=== PATIENT | female | born 1990 | race Caucasian/White ===

== ENCOUNTER → 2023-07-04 09:31 | Outpatient (REF) | payer BC, SELFPAY | LOC: RAD 09:31 | PROVIDERS: ATTENDING PHYSICIAN Nurse Practitioner Family | DX: S99.922S Unspecified injury of left foot, sequela (principal) | CPT/HCPCS: 73630 ==

== ENCOUNTER → 2023-07-16 08:40 | Outpatient (REF) | payer BC, SELFPAY | LOC: REG 08:40 | PROVIDERS: ATTENDING PHYSICIAN Physician Assistant | DX: Z34.91 Encounter for supervision of normal pregnancy, unspecified, first trimester (principal) | CPT/HCPCS: 36415; 84702 ==

== ENCOUNTER → 2023-10-27 07:44 | Outpatient (REF) | payer BC, SELFPAY | LOC: EMG 07:44 | PROVIDERS: ATTENDING PHYSICIAN Physician Assistant | DX: G62.9 Polyneuropathy, unspecified (principal); R20.0 Anesthesia of skin; R20.2 Paresthesia of skin | CPT/HCPCS: 95886; 95913 ==

== ENCOUNTER → 2023-11-24 09:58 | Outpatient (REF) | payer BC, SELFPAY | LOC: HWRAD 09:58 | PROVIDERS: ATTENDING PHYSICIAN Physician Assistant | DX: E01.0 Iodine-deficiency related diffuse (endemic) goiter (principal); E03.9 Hypothyroidism, unspecified | CPT/HCPCS: 76536 ==

== ENCOUNTER → 2023-12-07 09:01 | Outpatient (REF) | payer BC, SELFPAY ==
[2023-12-07 09:17] VITALS: BP 127/94; BP_SYST 92
[2023-12-07 11:35] LABS: Free T4 1.37 ng/dl (0.78-2.19)
[2023-12-07 11:49] LABS: TSH 0.46 uIU/ml (0.47-4.68)
== END ==
LOC: RADI 09:01
PROVIDERS: ATTENDING PHYSICIAN Physician Assistant
DX: E04.1 Nontoxic single thyroid nodule (principal)
CPT/HCPCS: 88173; 10005; 36415; 84439; 84443

== ENCOUNTER → 2024-04-26 16:01 | Outpatient (REF) | payer BC, SELFPAY | LOC: RAD 16:01 | PROVIDERS: ATTENDING PHYSICIAN Family Medicine | DX: M79.672 Pain in left foot (principal); M25.572 Pain in left ankle and joints of left foot | CPT/HCPCS: 73610; 73630 ==

== ENCOUNTER 2024-05-15 20:13 | Emergency (ER) | payer BC, SELFPAY ==
[2024-05-15 20:17] VITALS: BP 110/86
[2024-05-15 20:35] LABS: % Basophils 0.2 % (0-2); % Immature Granulocytes 0.2 % (0-0.5); % Lymphocytes 7.2 % (20.5-51.1); % Neutrophils 87.4 % (42.2-75.2); Absolute Eosinophils 0.1 10^3/uL (0-0.7); Absolute Lymphocytes 0.4 10^3/uL (1.2-3.4); Absolute Monocytes 0.2 10^3/uL (0.1-0.6); Absolute Neutrophils 4.4 10^3/uL (1.4-6.5); Hematocrit 40.1 % (37.0-47.0); Hemoglobin 13.7 g/dL (12.0-16.0); Mean Corp Hgb Conc. 34.2 g/dL (33.0-37.0); Mean Corpuscular Hgb 28.6 pg (27.0-31.0); Mean Corpuscular Volume 83.7 fL (81.0-99.0); Mean Platelet Volume 11.1 fL (7.4-10.4); Nucleated Red Blood Cells % 0 %; Platelet Count 226 10^3/uL (130-400); Red Blood Cell Count 4.79 10^6/uL (4.20-5.40); Red Cell Dist. Width 12.1 % (11.5-14.5)
[2024-05-15 20:47] LABS: ALT (SGPT) 20 U/L (0-35); AST (SGOT) 22 U/L (14-36); Alkaline Phosphatase 75 U/L (38-126); Blood Urea Nitrogen 15 mg/dl (7-17); Calcium 8.7 mg/dl (8.4-10.2); Carbon Dioxide 19 mmol/L (22-30); Chloride 103 mmol/L (98-107); Glucose 188 mg/dl (70-99); Potassium 4.6 mmol/L (3.5-5.1); Sodium 131 mmol/L (135-145); Total Bilirubin 0.7 mg/dl (0.2-1.3); Total Protein 6.5 g/dl (6.3-8.2); eGFR > 60.00
[2024-05-15 20:55] LABS: COVID-19 Antigen Negative (Negative)
--- NOTE | 2024-05-15 22:19 | EDRN ---
pt approached desk wishing to leave, reports she will use her own inhaler and follow up in the morning. lwot paper explained, pt signed for self. pt seen using her own inhaler and ambulated on own out of department without difficulty.
== END 2024-05-15 22:22 | disposition left against medical advice (07) ==
LOC: EMR 20:13
PROVIDERS: Student in an Organized Health Care Education/Training Program; EMERGENCY PHYSICIAN Emergency Medicine
DX: R50.9 Fever, unspecified (principal); R21 Rash and other nonspecific skin eruption; R22.0 Localized swelling, mass and lump, head; Z11.52 Encounter for screening for COVID-19; Z53.21 Procedure and treatment not carried out due to patient leaving prior to being seen by health care provider
CPT/HCPCS: 99281; 80053; 85025; 87502; 87811; 93005

== ENCOUNTER 2024-05-24 18:36 | Emergency (ER) | payer BC, SELFPAY ==
[2024-05-24 18:41] VITALS: BP 163/91
[2024-05-24 19:45] LABS: Troponin I < 0.012 ng/ml
[2024-05-24 20:45] VITALS: BP 139/95
[2024-05-24 21:00] VITALS: BP 143/91
[2024-05-24 21:11] VITALS: BMI 46.9
[2024-05-24 22:00] VITALS: BP 136/86
[2024-05-24 23:30] VITALS: BP 136/96
--- NOTE | 2024-05-24 23:48 | ED.GENMED ---
History of Present Illness
General
Chief Complaint: Cardiac Symptoms
Time Seen by Provider: 05/24/24 23:11
History of Present Illness
History of Present Illness:
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 Patient also reports
bilateral lower extremity swelling. Patient states that she had a outpatient ultrasound of her right leg that showed no DVT, states that she did not have a ultrasound of her left leg. Patient states that she has an avulsion fracture of the left
ankle is currently in the boot for the past 3 weeks. Patient states that she was seen by her PCP for symptoms who completed labs that showed a BNP of 997. Patient reports 17 pound weight gain in the past 3 days. Patient denies fever or cough
Past History
Past History
ED Past Medical History: Asthma, Hypercholesterolemia, NIDDM, Hypothyroidism and Other (AntiThrombin Deficiency, PCOS, Rectal bleeding, Migraines, Herniated disc)
ED Past Surgical History: Orthopedic
Social History
Tobacco: Non-smoker
Alcohol: None
Drug: None
Personal:
Living: with family
Employment: Employed (In nursing school)
Family History
Family History: Other (Patient's sister has had multiple pulmonary embolisms)
Phy Exam
Physical Exam
Physical Exam:
General: Alert, no acute distress
Head: NCAT
Eyes: clear conjunctiva
Neck: supple
Cardiac: regular rate and rhythm, no murmur
Lungs: clear to auscultation bilaterally. No wheezes, rales, or rhonchi. Speaking full unlabored sentences. No respiratory distress.
Abdomen: soft, nondistended nontender. No rebound or guarding.
MSK: bilateral lower extremity edema. right leg in boot
Skin: warm, dry
Neuro: Alert and oriented x3. no focal deficits
Course
Orders/Labs/Results
Orders:
Orders
05/24/24 18:36
Electrocardiogram (*1) Urgent
Reason for Study: Chest Pain
EKG- Treatment ONCE
05/24/24 18:58
CXR2 [CR Chest - 2 Views ] Urgent
Comment:
Reason For Exam: sob
05/24/24 19:07
Troponin I Urgent
05/24/24 23:41
Electrocardiogram (*1) Urgent
Reason for Study: Chest Pain
EKG- Treatment ONCE
CBC/With Diff [Complete Blood Count/With Diff] Urgent
CMP [Comprehensive Metabolic Panel] Urgent
DDimer [D-Dimer] Urgent
, Urine Qualitative Screen [HCG, Urine Qualitative Screen] Urgent
Date Specimen was Collected: 05/25/24
Time Specimen was Collected: 00:08
Protime/PTT Urgent
Troponin I Urgent
05/24/24 23:42
Test Result ONCE
05/25/24 00:00
US Periph Venous LOWER Ext LT Urgent
Reason For Exam: swelling
05/25/24 01:[address] [CT Chest PE Study] Urgent
Comment:
Reason For Exam: chest pain sob elevated ddimer
Abnormal Lab Results
05/25/24
00:17
RBC 3.72 L 10^6/uL
(4.20-5.40)
Hgb 10.7 L g/dL
(12.0-16.0)
Hct 31.3 L %
(37.0-47.0)
Abs Immat Gran (auto) 0.1 H 10^3/uL
(0-0.05)
Immature Gran % 2.2 H %
(0-0.5)
D-Dimer 0.55 H ug/mlFEU
(0.00-0.50)
Creatinine 1.1 H mg/dL
(0.6-1.0)
Glucose 129 H mg/dl
(70-99)
Total Protein 6.0 L g/dl
(6.3-8.2)
05/25/24 00:17
05/25/24 00:17
Vital Signs
Initial and Last Documented VS:
Initial Vital Signs
Temp Pulse Resp BP Pulse Ox
97.9 F 64 26 163/91 100
05/24/24 18:41 05/24/24 18:41 05/24/24 18:41 05/24/24 18:41 05/24/24 18:41
Last Documented Vital Signs
Temp Pulse Resp BP Pulse Ox
97.9 F 78 20 120/83 98
05/24/24 18:41 05/25/24 02:45 05/25/24 02:45 05/25/24 02:26 05/25/24 02:45
MDM/Problems Addressed
Differential Diagnosis Includes:
DVT, PE, CHF, NSTEMI, pneumonia, obesity
MDM/Problems Addressed:
Labs reviewed. Troponin negative x 2. D-dimer elevated, ordered CTA chest rule out PE. Left lower extremity duplex shows no DVT. CTA chest shows no acute pulmonary embolism. No thoracic aneurysm or acute aortic dissection. Bibasilar
atelectasis. No focal consolidation/infiltrate. No pulmonary edema. Initial EKG showed normal sinus rhythm at 63 bpm with OR 142 QTc 380 no acute ischemic changes. Repeat EKG shows normal sinus rhythm at 70 bpm with OR 156 QTc 410 no acute
ischemic changes. Vital signs within normal limits. Discussed results with patient at bedside. Stable for discharge home with PCP follow-up
*Critical Care Note
Total Time (30-74mins, 75-104mins- exclusive of procedures): Not Applicable
ED Attending Note
-
Portions of this chart may have been created with voice recognition software.� Occasional wrong word or��sound alike� substitutions may have occurred due to the inherent limitations of voice recognition software.
Discharge Plan
Departure
Patient Disposition: Home (Routine Discharge)
Date of Disposition: 05/25/24
Time of Disposition: 02:43
Patient with high blood pressure during this ER visit?: Yes
Discharge Problem:
Shortness of breath, Chest pain
Instructions: Shortness of breath, BLOOD PRESSURE
Prescriptions:
No Action
aspirin 325 MG tablet
325 mg PO DAILY
spironolactone [Aldactone] 100 MG tablet
150 mg PO DAILY
metformin 1,000 MG tablet
2,000 mg PO DAILY
albuterol sulfate 18 GM HFA aerosol inhaler
2 puff inhalation PRN PRN (Reason: SOB)
lorazepam 1 MG tablet
0.5 mg PO PRN PRN (Reason: anxiety)
vilazodone [Viibryd] 20 MG tablet
20 mg PO DAILY
levothyroxine 175 mcg Tablet
175 mcg PO DAILY
rosuvastatin [Crestor] 5 mg Tablet
5 mg PO DAILY
cholecalciferol (vitamin D3) [Vitamin D3] 125 mcg (5,000 unit) Tablet
125 mcg PO DAILY
Mounjaro 10 mg/0.5 mL Pen Injector
10 mg SC QWEEK
Referrals:
Janay Morillo PA [Family Provider] -
Activity Restrictions/Additional Instructions:
Follow up with primary care doctor in 1-2 days
Return to the emergency department for fever or new/worsening symptoms
Interventions
Interventions:
*Risk Screen - Suicide Last Done: 05/24/24 18:41
*General Assessment Last Done: 05/24/24 21:03
*Neglect/Abuse Screening Last Done: 05/24/24 18:41
ED- Fall Risk Assessment Last Done: 05/24/24 21:03
*ED COVID-19 Vaccine History Last Done: 05/24/24 18:41
*Nursing Disposition Last Done: 05/25/24 02:54
ED- Pulmonary Assessment Last Done: 05/24/24 21:03
ED- Cardiac Assessment Last Done: 05/24/24 21:03
Discharge Date and Time
Print Language: IRISH
[2024-05-25] VITALS: BP 123/75
[2024-05-25 00:29] LABS: HCG, Urine Qualitative Screen Negative
[2024-05-25 00:34] LABS: INR 1.06; PT 14.3 Sec (11.4-14.6)
[2024-05-25 00:36] LABS: APTT 27.2 Sec (23.4-35.0)
[2024-05-25 00:38] LABS: D-Dimer 0.55 ug/mlFEU (0.00-0.50)
[2024-05-25 00:39] LABS: Hematocrit 31.3 % (37.0-47.0); Hemoglobin 10.7 g/dL (12.0-16.0); Mean Corp Hgb Conc. 34.2 g/dL (33.0-37.0); Mean Corpuscular Hgb 28.8 pg (27.0-31.0); Mean Corpuscular Volume 84.1 fL (81.0-99.0); Mean Platelet Volume 9.7 fL (7.4-10.4); Platelet Count 293 10^3/uL (130-400); Red Blood Cell Count 3.72 10^6/uL (4.20-5.40); Red Cell Dist. Width 12.2 % (11.5-14.5); White Blood Cell Count 4.9 10^3/uL (4.8-10.8)
[2024-05-25 00:40] LABS: ALT (SGPT) 18 U/L (0-35); AST (SGOT) 17 U/L (14-36); Albumin 3.6 g/dl (3.5-5.0); Alkaline Phosphatase 60 U/L (38-126); Blood Urea Nitrogen 15 mg/dl (7-17); Calcium 9.5 mg/dl (8.4-10.2); Carbon Dioxide 26 mmol/L (22-30); Chloride 104 mmol/L (98-107); Estimated Creatinine Clearance 105 ml/min; Glucose 129 mg/dl (70-99); Potassium 4.2 mmol/L (3.5-5.1); Sodium 137 mmol/L (135-145); Total Bilirubin 0.8 mg/dl (0.2-1.3); eGFR > 60.00
[2024-05-25 00:52] LABS: Troponin I < 0.012 ng/ml
[2024-05-25 01:09] LABS: % Eosinophils 2.4 % (0-6); % Immature Granulocytes 2.2 % (0-0.5); % Monocytes 6.9 % (1.7-9.3); % Neutrophils 47.5 % (42.2-75.2); Absolute Basophils 0.1 10^3/uL (0-0.2); Absolute Eosinophils 0.1 10^3/uL (0-0.7); Absolute Immature Granulocytes 0.1 10^3/uL (0-0.05); Absolute Monocytes 0.3 10^3/uL (0.1-0.6); Absolute Neutrophils 2.3 10^3/uL (1.4-6.5); Nucleated Red Blood Cells % 0 %
[2024-05-25 01:25] VITALS: BP 122/81
[2024-05-25 02:26] VITALS: BP 120/83
== END 2024-05-25 02:57 | disposition home or self-care (01) ==
LOC: EMR 18:36
PROVIDERS: Student in an Organized Health Care Education/Training Program; EMERGENCY PHYSICIAN Emergency Medicine; FAMILY PHYSICIAN Physician Assistant
DX: R06.02 Shortness of breath (principal); R07.89 Other chest pain; R60.0 Localized edema; J45.909 Unspecified asthma, uncomplicated; K58.9 Irritable bowel syndrome, unspecified; D68.59 Other primary thrombophilia; E03.9 Hypothyroidism, unspecified; E11.9 Type 2 diabetes mellitus without complications; E78.00 Pure hypercholesterolemia, unspecified
CPT/HCPCS: 99284; 36415; 71046; 71275; 80048; 80053; 81025; 83880; 84484; 85025; 85379; 85610; 85730; 93005; 93971; Q9967

== ENCOUNTER → 2024-05-25 10:42 | Outpatient (REF) | payer BC, SELFPAY | LOC: RCS 10:42 | PROVIDERS: ATTENDING PHYSICIAN Physician Assistant | DX: R79.89 Other specified abnormal findings of blood chemistry (principal); R60.0 Localized edema | CPT/HCPCS: 93306; Q9950 ==

== ENCOUNTER → 2024-08-15 08:09 | Outpatient (REF) | payer BC, SELFPAY | LOC: RAD 08:09 | PROVIDERS: ATTENDING PHYSICIAN Internal Medicine Hematology & Oncology; FAMILY PHYSICIAN Physician Assistant | DX: D68.59 Other primary thrombophilia (principal); M79.605 Pain in left leg | CPT/HCPCS: 93971 ==

== ENCOUNTER → 2024-11-01 09:53 | Outpatient (REF) | payer BC, SELFPAY | LOC: RAD 09:53 | PROVIDERS: ATTENDING PHYSICIAN Physician Assistant | DX: E01.0 Iodine-deficiency related diffuse (endemic) goiter (principal); E04.1 Nontoxic single thyroid nodule; R59.9 Enlarged lymph nodes, unspecified | CPT/HCPCS: 76536 ==

== ENCOUNTER → 2025-02-06 13:08 | Outpatient (REF) | payer BC, SELFPAY | LOC: RAD 13:08 | PROVIDERS: ATTENDING PHYSICIAN Physician Assistant | DX: I80.8 Phlebitis and thrombophlebitis of other sites (principal) | CPT/HCPCS: 93971 ==